=== PATIENT | male | born 1950 | race Caucasian/White ===

== ENCOUNTER → 2025-07-15 08:28 | Outpatient (REF) | payer MEDICARE, BC, SELFPAY ==
[2025-07-15 10:34] LABS: Hematocrit 42.2 % (39.0-52.0); Hemoglobin 14.4 g/dL (13.0-18.0); Mean Corp Hgb Conc. 34.1 g/dL (33.0-37.0); Mean Corpuscular Volume 93.8 fL (80.0-94.0); Platelet Count 295 10^3/uL (130-400); Red Cell Dist. Width 13.7 % (11.5-14.5)
[2025-07-15 11:01] LABS: ALT (SGPT) 18 U/L (0-50); AST (SGOT) 22 U/L (17-59); Albumin 4.1 g/dl (3.5-5.0); Alkaline Phosphatase 86 U/L (38-126); Blood Urea Nitrogen 18 mg/dl (9-20); Calcium 9.4 mg/dl (8.4-10.2); Carbon Dioxide 24 mmol/L (22-30); Chloride 102 mmol/L (98-107); Glucose 77 mg/dl (70-99); HDL Cholesterol 73 mg/dl; LDL Cholesterol, Calculated 81 mg/dl; Potassium 4.2 mmol/L (3.5-5.1); Total Protein 6.7 g/dl (6.3-8.2); Very Low Density Lipoprotein 17 mg/dl (0-30); eGFR > 60.00
[2025-07-15 11:05] LABS: Sodium 133 mmol/L (135-145)
[2025-07-15 11:49] LABS: Glycohemoglobin (HgbA1c) 5.8 % (4.0-5.6)
== END ==
LOC: REG 08:28
PROVIDERS: ATTENDING PHYSICIAN Nurse Practitioner Family
DX: Z13.1 Encounter for screening for diabetes mellitus (principal); Z13.29 Encounter for screening for other suspected endocrine disorder; E78.2 Mixed hyperlipidemia; Z12.5 Encounter for screening for malignant neoplasm of prostate; Z79.899 Other long term (current) drug therapy; R39.15 Urgency of urination
CPT/HCPCS: 36415; 80053; 80061; 83036; 84153; 84154; 84443; 85027

== ENCOUNTER → 2025-08-07 14:14 | Outpatient (REF) | payer MEDICARE, BC, SELFPAY | LOC: RAD 14:14 | PROVIDERS: ATTENDING PHYSICIAN Nurse Practitioner Family | DX: R11.2 Nausea with vomiting, unspecified (principal); R10.84 Generalized abdominal pain | CPT/HCPCS: 74177; Q9967 ==